=== PATIENT | male | born 1960 | race Caucasian/White ===

== ENCOUNTER 2018-07-18 02:08 | Inpatient (IN) | payer MEDICAID ==
[~2018-07-18] VITALS: Ht 185.4 cm; Wt 126.5 kg
[2018-07-18 02:00] VITALS: BP 105/61
[~2018-07-18 02:08] MED LIST: ALBU6.7H INH; COU3T PO; COU4T PO; LOSA25TA96 PO; OMEP40CA37 PO; SUMA25TA35 PO
[2018-07-18] MEDS ORDERED: normal saline 1000ML IV soln IV ONE (02:15)
[2018-07-18 02:44] LABS: BASOPHILS # (AUTO) 0.1 X10'3 (0-0.2); BASOPHILS % (AUTO) 0.6 % (0-1); EOSINOPHILS # (AUTO) 0.3 X10'3 (0-0.9); EOSINOPHILS % (AUTO) 2.1 % (0-6); HEMATOCRIT 25.9 % (42.0-52.0); HEMOGLOBIN 8.6 g/dl (14.0-17.9); LYMPHOCYTES % (AUTO) 25.1 % (21-51); MEAN CORPUSCULAR HEMOGLOBIN 29.5 PG (27.0-31.0); MEAN CORPUSCULAR HGB CONC 33.4 % (33.0-36.5); MEAN CORPUSCULAR VOLUME 88.4 FL (78-98); MEAN PLATELET VOLUME 8.3 FL (7.4-10.4); MONOCYTES # (AUTO) 0.5 X10'3 (0-0.9); MONOCYTES % (AUTO) 4.6 % (2-12); NEUTROPHILS # (AUTO) 8.1 X10'3 (1.8-7.7); NEUTROPHILS % (AUTO) 67.6 % (42-75); PLATELET COUNT 231 X10'3 (140-440); RED BLOOD COUNT 2.93 X10'6 (4.70-6.10); RED CELL DISTRIBUTION WIDTH 12.9 % (11.5-14.5); WHITE BLOOD COUNT 11.9 X10'3 (4.5-11.0)
[2018-07-18 02:52] LABS: INR 1.1 INR; PARTIAL THROMBOPLASTIN TIME 24 SECONDS (22-32); PROTHROMBIN TIME 11.8 SECONDS (9.0-12.0)
[2018-07-18 02:58] LABS: ALANINE AMINOTRANSFERASE 19 U/L (12-78); ALBUMIN 2.4 G/DL (3.4-5.0); ALKALINE PHOSPHATASE 51 IU/L (46-116); ANION GAP 11 (8-16); ASPARTATE AMINO TRANSFERASE 14 U/L (10-37); BILIRUBIN,TOTAL 0.2 MG/DL (0.1-1.0); BLOOD UREA NITROGEN 42 MG/DL (7-18); BUN/CREATININE RATIO 36.8 (5.4-32.0); CALCIUM 7.1 MG/DL (8.5-10.1); CHLORIDE 111 MMOL/L (99-107); CREATININE 1.14 MG/DL (0.60-1.10); GLUCOSE 144 MG/DL (70-104); MAGNESIUM 1.5 MG/DL (1.5-2.4); POTASSIUM 3.8 MMOL/L (3.5-5.1); SODIUM 144 MMOL/L (135-145); TOTAL CARBON DIOXIDE 21.6 MMOL/L (24-32); TOTAL PROTEIN 4.8 G/DL (6.4-8.2); eGFR 66 ML/MIN
[2018-07-18 03:21] LABS: OCCULT BLOOD STOOL NEGATIVE (Neg)
[2018-07-18] MEDS ORDERED: ACET-2119 PO (03:40)
[2018-07-18] MEDS ORDERED: FAMO-128 PO (03:42)
[2018-07-18] MEDS ORDERED: SIME125C PO (03:42)
[2018-07-18] MEDS ORDERED: BECL7.3A INH (03:45)
[2018-07-18] MEDS ORDERED: ALBU18HF2 INH (03:45)
[2018-07-18 03:48] LABS: CLARITY,URINE CLEAR (Clear); COLOR,URINE YELLOW (Yellow); GLUCOSE, URINE NEGATIVE (Neg); KETONES,URINE NEGATIVE (Neg); LEUKOCYTE ESTERASE ,URINE NEGATIVE (Neg); NITRITES, URINE NEGATIVE (Neg); OCCULT BLOOD,URINE NEGATIVE (Neg); PH,URINE 5.5 (4.8-8.0); PROTEIN,URINE NEGATIVE (Neg); UROBILINOGEN,URINE 0.2 E.U/dL (0.2-1.0)
[2018-07-18 03:56] LABS: UA COLLECTION TYPE STRAIGHT CATH
[2018-07-18] MEDS ORDERED: normal saline 1000ML IV soln IVB ONE (04:05)
[2018-07-18] MEDS ORDERED: APIX5TAB3 PO (04:09)
[2018-07-18] MEDS ORDERED: magnesium Cl slow-release 64mg tablet PO PRN (04:40)
[2018-07-18] MEDS ORDERED: mag hydrox/Alum hydrox/simeth 30ml oral suspension PO PRN (04:40)
[2018-07-18] MEDS ORDERED: potassium Cl 20 mEq SR tablet PO PRN ×2 (04:40)
[2018-07-18] MEDS ORDERED: magnesium 1gm/100ml D5W IVPB 100 ML IV PRN (04:40)
[2018-07-18] MEDS ORDERED: potassium Cl 40MEQ/NS 500ml 500 ML IV PRN ×2 (04:40)
[2018-07-18] MEDS ORDERED: magnesium hydroxide 30ml (MOM) UD suspension PO PRN (04:40)
[2018-07-18] MEDS ORDERED: bisacodyl 10mg suppository rectal RC PRN (04:40)
[2018-07-18] MEDS ORDERED: magnesium 4gm in 100ml NS 100 ML IV PRN (04:40)
[2018-07-18] MEDS ORDERED: ondansetron/PF 4mg/2ml inj IV PRN (04:40)
[2018-07-18] MEDS ORDERED: acetaminophen 325mg tablet PO PRN (04:40)
[2018-07-18 05:00] VITALS: BP 129/63
[2018-07-18] MEDS ORDERED: lactulose 20gm/30ml cup PO PRN (05:05)
[2018-07-18 05:15] LABS: URINE AMPHETAMINE SCREEN POSITIVE (Neg); URINE BARBITUATE SCREEN NEGATIVE (Neg); URINE BENZODIAZEPINES SCREEN NEGATIVE (Neg); URINE CANNABINOID SCREEN NEGATIVE (Neg); URINE COCAINE SCREEN NEGATIVE (Neg); URINE METHADONE SCREEN NEGATIVE (Neg); URINE OPIATE SCREEN NEGATIVE (Neg); URINE PHENCYCLIDINE SCREEN NEGATIVE (Neg)
[2018-07-18] MEDS: docusate sod 100mg capsule PO SCH ×2 (07:23→20:00)
[2018-07-18] MEDS: apixaban 2.5mg tablet PO SCH ×2 (07:23→20:22)
[2018-07-18] MEDS: normal saline 1000ml 1,000 ML IV SCH ×2 (07:30→14:40)
[2018-07-18] MEDS ORDERED: apixaban 5mg tablet PO SCH (08:00)
[2018-07-18] MEDS: K and/or MAG REPLACEMENT MC SCH (08:00)
[2018-07-18] MEDS ORDERED: non-formulary drug (Beclomethasone Dipropionate (Qvar 40 MCG INHALER) 2 PUFFS) INH SCH (08:00)
[2018-07-18] MEDS: BUDESONIDE 0.25 MG/2 ML AMPUL.NEB IH SCH ×2 (09:00→21:00)
[2018-07-18 10:00] VITALS: BP 92/60
[2018-07-18] MEDS ORDERED: adenosine 3mg/ml 2ml vial IV ONE (12:00)
[2018-07-18 18:00] VITALS: BP 92/60
[2018-07-18 22:00] VITALS: BP 103/69
[2018-07-19] VITALS (37 sets, daily range): BP systolic 84–155; BP diastolic 45–90
[2018-07-19] MEDS ORDERED: LORazepam 2 mg/ml vial IV PRN (01:35)
[2018-07-19 01:36] LABS: ABG BASE EXCESS -4.9 mmol/L (-2.0-3.0); ABG HCO3 18.2 mmol/L (22.0-26.0); ABG OXYGEN SATURATION 97.5 % (95-98); ABG PCO2 (T) 24.4 mmHg (35.0-48.0); ABG PH (T) 7.489 (7.350-7.450); ABG PO2 (T) 107.9 mmHg (83-108); ALLEN'S TEST Positive; FCOHb 0.3 % (0.5-1.5); FMetHb 0.2 % (0.3-1.12); PATIENT TEMPERATURE 36.4; TOTAL HEMOGLOBIN 5.6 G/dl (14.0-18.0)
[2018-07-19 02:00] LABS: BASOPHILS # (AUTO) 0.1 X10'3 (0-0.2); BASOPHILS % (AUTO) 0.5 % (0-1); EOSINOPHILS # (AUTO) 0.5 X10'3 (0-0.9); EOSINOPHILS % (AUTO) 4.4 % (0-6); LYMPHOCYTES # (AUTO) 3.8 X10'3 (1.1-4.8); LYMPHOCYTES % (AUTO) 30.5 % (21-51); MEAN CORPUSCULAR HEMOGLOBIN 29.9 PG (27.0-31.0); MEAN CORPUSCULAR HGB CONC 33.3 % (33.0-36.5); MEAN CORPUSCULAR VOLUME 89.8 FL (78-98); MEAN PLATELET VOLUME 8.4 FL (7.4-10.4); MONOCYTES # (AUTO) 0.8 X10'3 (0-0.9); MONOCYTES % (AUTO) 6.8 % (2-12); NEUTROPHILS # (AUTO) 7.1 X10'3 (1.8-7.7); NEUTROPHILS % (AUTO) 57.8 % (42-75); PLATELET COUNT 208 X10'3 (140-440); RED BLOOD COUNT 1.89 X10'6 (4.70-6.10); RED CELL DISTRIBUTION WIDTH 13.2 % (11.5-14.5); WHITE BLOOD COUNT 12.3 X10'3 (4.5-11.0)
[2018-07-19 02:02] LABS: ALBUMIN 2.1 G/DL (3.4-5.0); ANION GAP 10 (8-16); BLOOD UREA NITROGEN 27 MG/DL (7-18); BUN/CREATININE RATIO 24.1 (5.4-32.0); CALCIUM 7.1 MG/DL (8.5-10.1); CHLORIDE 110 MMOL/L (99-107); CREATININE 1.12 MG/DL (0.60-1.10); GLUCOSE 157 MG/DL (70-104); PHOSPHORUS 2.4 MG/DL (2.3-4.5); POTASSIUM 3.7 MMOL/L (3.5-5.1); SODIUM 141 MMOL/L (135-145); TOTAL CARBON DIOXIDE 21.2 MMOL/L (24-32); TROPONIN I < 0.04 NG/ML (0.0-0.05); eGFR 68 ML/MIN
[2018-07-19 02:07] LABS: HEMOGLOBIN 5.7 g/dl (14.0-17.9)
[2018-07-19] MEDS ORDERED: normal saline 1000ml 1,000 ML IV ONE ×3 (02:45)
[2018-07-19] MEDS ORDERED: pantoprazole 40 MG vial IV ONE (02:55)
[2018-07-19] MEDS ORDERED: octreotide 100mcg/1 ml ampule SQ SCH (03:02)
[2018-07-19] MEDS: normal saline 1000ml 1,000 ML IV SCH ×3 (03:35→20:40)
[2018-07-19] MEDS: pantoprazole 40MG/NS 100ML BAG 100 ML IV SCH ×5 (03:37→20:16)
[2018-07-19] MEDS: octreotide inj. 1,250 MCG in normal saline 250ml IV soln 243.75 ML IV SCH ×2 (05:00→05:34)
[2018-07-19 05:51] LABS: MAGNESIUM 1.8 MG/DL (1.5-2.4)
[2018-07-19] MEDS ORDERED: ERYTHROMYCIN LACTOBIONATE IV ONE ×3 (06:00→09:00)
[2018-07-19] MEDS ORDERED: NORMAL SALINE IV ONE ×3 (06:00→09:00)
[2018-07-19] MEDS: docusate sod 100mg capsule PO SCH ×2 (08:00→19:55)
[2018-07-19] MEDS: K and/or MAG REPLACEMENT MC SCH (08:00)
[2018-07-19] MEDS ORDERED: MIDAZolam 5mg/5ml vial ONE (08:16)
[2018-07-19] MEDS ORDERED: LIDOcaine Viscous 15ml cup ONE (08:16)
[2018-07-19] MEDS ORDERED: fentaNYL/PF 50MCG/1 ML 2ML syringe ONE (08:16)
[2018-07-19] MEDS: BUDESONIDE 0.25 MG/2 ML AMPUL.NEB IH SCH ×2 (09:00→20:56)
[2018-07-19 12:04] LABS: HEMATOCRIT 24.9 % (42.0-52.0); HEMOGLOBIN 8.4 g/dl (14.0-17.9); MEAN CORPUSCULAR HEMOGLOBIN 29.3 PG (27.0-31.0); MEAN CORPUSCULAR HGB CONC 33.6 % (33.0-36.5); MEAN PLATELET VOLUME 8.8 FL (7.4-10.4); PLATELET COUNT 147 X10'3 (140-440); RED BLOOD COUNT 2.86 X10'6 (4.70-6.10); RED CELL DISTRIBUTION WIDTH 14.2 % (11.5-14.5); WHITE BLOOD COUNT 15.6 X10'3 (4.5-11.0)
[2018-07-19 12:29] LABS: ALBUMIN 2.3 G/DL (3.4-5.0); ANION GAP 10 (8-16); BLOOD UREA NITROGEN 30 MG/DL (7-18); BUN/CREATININE RATIO 28.8 (5.4-32.0); CHLORIDE 111 MMOL/L (99-107); CREATININE 1.04 MG/DL (0.60-1.10); GLUCOSE 138 MG/DL (70-104); MAGNESIUM 1.7 MG/DL (1.5-2.4); POTASSIUM 4.5 MMOL/L (3.5-5.1); SODIUM 143 MMOL/L (135-145); TOTAL CARBON DIOXIDE 22.4 MMOL/L (24-32); eGFR 74 ML/MIN
[2018-07-19 15:54] LABS: BASOPHILS % (AUTO) 0.1 % (0-1); EOSINOPHILS # (AUTO) 0.1 X10'3 (0-0.9); EOSINOPHILS % (AUTO) 0.4 % (0-6); HEMATOCRIT 22.7 % (42.0-52.0); HEMOGLOBIN 7.7 g/dl (14.0-17.9); LYMPHOCYTES # (AUTO) 2.6 X10'3 (1.1-4.8); LYMPHOCYTES % (AUTO) 15.7 % (21-51); MEAN CORPUSCULAR HEMOGLOBIN 29.4 PG (27.0-31.0); MEAN CORPUSCULAR HGB CONC 33.9 % (33.0-36.5); MEAN CORPUSCULAR VOLUME 86.6 FL (78-98); MEAN PLATELET VOLUME 8.5 FL (7.4-10.4); MONOCYTES % (AUTO) 6.3 % (2-12); NEUTROPHILS # (AUTO) 12.9 X10'3 (1.8-7.7); NEUTROPHILS % (AUTO) 77.5 % (42-75); PLATELET COUNT 161 X10'3 (140-440); RED BLOOD COUNT 2.62 X10'6 (4.70-6.10); RED CELL DISTRIBUTION WIDTH 14.7 % (11.5-14.5); WHITE BLOOD COUNT 16.6 X10'3 (4.5-11.0)
[2018-07-19] MEDS ORDERED: diphenhydrAMINE 25 MG/10 ML UD oral solution PO ONE (19:50)
[2018-07-19] MEDS ORDERED: OXAZEpam 15mg capsule PO PRN (19:55)
[2018-07-19] MEDS ORDERED: diphenhydrAMINE 25mg capsule PO ONE (19:55)
[2018-07-19 20:36] LABS: HEMOGLOBIN 7.2 g/dl (14.0-17.9); MEAN CORPUSCULAR HEMOGLOBIN 29.8 PG (27.0-31.0); MEAN CORPUSCULAR HGB CONC 34.5 % (33.0-36.5); MEAN CORPUSCULAR VOLUME 86.3 FL (78-98); MEAN PLATELET VOLUME 8.8 FL (7.4-10.4); PLATELET COUNT 163 X10'3 (140-440); RED BLOOD COUNT 2.42 X10'6 (4.70-6.10); RED CELL DISTRIBUTION WIDTH 14.9 % (11.5-14.5); WHITE BLOOD COUNT 17.1 X10'3 (4.5-11.0)
[2018-07-19 20:40] LABS: HEMATOCRIT 20.9 % (42.0-52.0)
[2018-07-20] VITALS (27 sets, daily range): BP systolic 94–143; BP diastolic 59–94
[2018-07-20] MEDS: pantoprazole 40MG/NS 100ML BAG 100 ML IV SCH ×5 (01:00→19:12)
[2018-07-20 05:42] LABS: BASOPHILS # (AUTO) 0.1 X10'3 (0-0.2); BASOPHILS % (AUTO) 0.4 % (0-1); EOSINOPHILS # (AUTO) 0.6 X10'3 (0-0.9); EOSINOPHILS % (AUTO) 4.2 % (0-6); HEMOGLOBIN 7.3 g/dl (14.0-17.9); MEAN CORPUSCULAR HGB CONC 34.6 % (33.0-36.5); MEAN CORPUSCULAR VOLUME 86.7 FL (78-98); MEAN PLATELET VOLUME 8.8 FL (7.4-10.4); MONOCYTES # (AUTO) 0.9 X10'3 (0-0.9); MONOCYTES % (AUTO) 6.7 % (2-12); NEUTROPHILS # (AUTO) 8.2 X10'3 (1.8-7.7); NEUTROPHILS % (AUTO) 59.7 % (42-75); PLATELET COUNT 165 X10'3 (140-440); RED BLOOD COUNT 2.43 X10'6 (4.70-6.10); RED CELL DISTRIBUTION WIDTH 14.7 % (11.5-14.5); WHITE BLOOD COUNT 13.8 X10'3 (4.5-11.0)
[2018-07-20 06:13] LABS: ALBUMIN 2.1 G/DL (3.4-5.0); ANION GAP 6 (8-16); BLOOD UREA NITROGEN 24 MG/DL (7-18); BUN/CREATININE RATIO 22.9 (5.4-32.0); CHLORIDE 109 MMOL/L (99-107); CREATININE 1.05 MG/DL (0.60-1.10); GLUCOSE 114 MG/DL (70-104); MAGNESIUM 1.7 MG/DL (1.5-2.4); SODIUM 140 MMOL/L (135-145); TOTAL CARBON DIOXIDE 24.6 MMOL/L (24-32); eGFR 73 ML/MIN
[2018-07-20] MEDS: normal saline 1000ml 1,000 ML IV SCH ×2 (06:40→16:40)
[2018-07-20] MEDS: docusate sod 100mg capsule PO SCH ×2 (08:00→20:00)
[2018-07-20] MEDS: K and/or MAG REPLACEMENT MC SCH (08:00)
[2018-07-20] MEDS: BUDESONIDE 0.25 MG/2 ML AMPUL.NEB IH SCH ×2 (08:22→19:46)
[2018-07-20 14:54] LABS: HEMATOCRIT 22.8 % (42.0-52.0); HEMOGLOBIN 7.8 g/dl (14.0-17.9); MEAN CORPUSCULAR HEMOGLOBIN 29.6 PG (27.0-31.0); MEAN CORPUSCULAR HGB CONC 34.1 % (33.0-36.5); MEAN CORPUSCULAR VOLUME 86.8 FL (78-98); MEAN PLATELET VOLUME 8.6 FL (7.4-10.4); PLATELET COUNT 149 X10'3 (140-440); RED BLOOD COUNT 2.62 X10'6 (4.70-6.10); RED CELL DISTRIBUTION WIDTH 14.7 % (11.5-14.5); WHITE BLOOD COUNT 11.5 X10'3 (4.5-11.0)
[2018-07-20] MEDS: acetaminophen 325mg tablet PO PRN (21:41)
[2018-07-21] VITALS (25 sets, daily range): BP systolic 87–134; BP diastolic 52–85
[2018-07-21] MEDS: pantoprazole 40MG/NS 100ML BAG 100 ML IV SCH ×5 (00:03→20:46)
[2018-07-21] MEDS: normal saline 1000ml 1,000 ML IV SCH ×2 (03:19→12:18)
[2018-07-21 05:01] LABS: BASOPHILS # (AUTO) 0.1 X10'3 (0-0.2); BASOPHILS % (AUTO) 0.6 % (0-1); EOSINOPHILS # (AUTO) 0.6 X10'3 (0-0.9); EOSINOPHILS % (AUTO) 6.2 % (0-6); HEMOGLOBIN 7.3 g/dl (14.0-17.9); LYMPHOCYTES # (AUTO) 2.4 X10'3 (1.1-4.8); LYMPHOCYTES % (AUTO) 23.8 % (21-51); MEAN CORPUSCULAR HEMOGLOBIN 29.8 PG (27.0-31.0); MEAN CORPUSCULAR HGB CONC 34.1 % (33.0-36.5); MEAN CORPUSCULAR VOLUME 87.4 FL (78-98); MONOCYTES # (AUTO) 0.9 X10'3 (0-0.9); MONOCYTES % (AUTO) 8.6 % (2-12); NEUTROPHILS # (AUTO) 5.9 X10'3 (1.8-7.7); NEUTROPHILS % (AUTO) 60.8 % (42-75); PLATELET COUNT 156 X10'3 (140-440); RED BLOOD COUNT 2.43 X10'6 (4.70-6.10); WHITE BLOOD COUNT 9.9 X10'3 (4.5-11.0)
[2018-07-21 05:04] LABS: HEMATOCRIT 21.2 % (42.0-52.0)
[2018-07-21 05:06] LABS: ANION GAP 6 (8-16); BLOOD UREA NITROGEN 14 MG/DL (7-18); BUN/CREATININE RATIO 14.7 (5.4-32.0); CALCIUM 7.2 MG/DL (8.5-10.1); CHLORIDE 109 MMOL/L (99-107); CREATININE 0.95 MG/DL (0.60-1.10); GLUCOSE 112 MG/DL (70-104); MAGNESIUM 1.8 MG/DL (1.5-2.4); POTASSIUM 3.4 MMOL/L (3.5-5.1); SODIUM 142 MMOL/L (135-145); TOTAL CARBON DIOXIDE 27.3 MMOL/L (24-32); eGFR 82 ML/MIN
[2018-07-21] MEDS ORDERED: potassium Cl 20 mEq SR tablet PO PRN (06:50)
[2018-07-21] MEDS ORDERED: potassium Cl 40MEQ/NS 500ml 500 ML IV PRN ×2 (06:50)
[2018-07-21] MEDS: potassium Cl 20 mEq SR tablet PO PRN ×3 (07:57→19:41)
[2018-07-21] MEDS: docusate sod 100mg capsule PO SCH ×2 (07:57→19:41)
[2018-07-21] MEDS: K and/or MAG REPLACEMENT MC SCH (08:00)
[2018-07-21] MEDS: acetaminophen 325mg tablet PO PRN (10:01)
[2018-07-21] MEDS ORDERED: furosemide 40mg/4ml inj IV ONE (13:10)
[2018-07-21] MEDS: BUDESONIDE 0.25 MG/2 ML AMPUL.NEB IH SCH ×2 (14:37→19:41)
[2018-07-21 16:18] LABS: HEMATOCRIT 26.4 % (42.0-52.0); HEMOGLOBIN 8.9 g/dl (14.0-17.9); MEAN CORPUSCULAR HEMOGLOBIN 29.7 PG (27.0-31.0); MEAN CORPUSCULAR VOLUME 87.4 FL (78-98); PLATELET COUNT 190 X10'3 (140-440); RED BLOOD COUNT 3.01 X10'6 (4.70-6.10); RED CELL DISTRIBUTION WIDTH 15.1 % (11.5-14.5); WHITE BLOOD COUNT 9.3 X10'3 (4.5-11.0)
[2018-07-21 16:46] LABS: % IRON SATURATION 4 % (11-46); IRON 12 UG/DL (53-167); TOTAL IRON BINDING CAPACITY 332 UG/DL (259-388)
[2018-07-21 17:06] LABS: FERRITIN 17 NG/ML (26-388)
[2018-07-22] VITALS (18 sets, daily range): BP systolic 86–146; BP diastolic 61–93
[2018-07-22] MEDS: pantoprazole 40MG/NS 100ML BAG 100 ML IV SCH ×2 (01:36→06:07)
[2018-07-22 05:23] LABS: BASOPHILS # (AUTO) 0.1 X10'3 (0-0.2); BASOPHILS % (AUTO) 0.6 % (0-1); EOSINOPHILS # (AUTO) 0.6 X10'3 (0-0.9); EOSINOPHILS % (AUTO) 6.5 % (0-6); HEMATOCRIT 25.3 % (42.0-52.0); HEMOGLOBIN 8.6 g/dl (14.0-17.9); LYMPHOCYTES # (AUTO) 2.1 X10'3 (1.1-4.8); LYMPHOCYTES % (AUTO) 24.4 % (21-51); MEAN CORPUSCULAR HEMOGLOBIN 30.3 PG (27.0-31.0); MEAN CORPUSCULAR HGB CONC 34.2 % (33.0-36.5); MEAN CORPUSCULAR VOLUME 88.6 FL (78-98); MEAN PLATELET VOLUME 8.4 FL (7.4-10.4); MONOCYTES # (AUTO) 0.7 X10'3 (0-0.9); NEUTROPHILS # (AUTO) 5.1 X10'3 (1.8-7.7); NEUTROPHILS % (AUTO) 60.5 % (42-75); PLATELET COUNT 190 X10'3 (140-440); RED BLOOD COUNT 2.85 X10'6 (4.70-6.10); RED CELL DISTRIBUTION WIDTH 14.9 % (11.5-14.5); WHITE BLOOD COUNT 8.6 X10'3 (4.5-11.0)
[2018-07-22 05:27] LABS: ALBUMIN 2.3 G/DL (3.4-5.0); ANION GAP 7 (8-16); BLOOD UREA NITROGEN 12 MG/DL (7-18); BUN/CREATININE RATIO 13.6 (5.4-32.0); CALCIUM 7.6 MG/DL (8.5-10.1); CHLORIDE 107 MMOL/L (99-107); CREATININE 0.88 MG/DL (0.60-1.10); GLUCOSE 107 MG/DL (70-104); MAGNESIUM 1.9 MG/DL (1.5-2.4); POTASSIUM 3.6 MMOL/L (3.5-5.1); SODIUM 142 MMOL/L (135-145); TOTAL CARBON DIOXIDE 28.1 MMOL/L (24-32); eGFR 89 ML/MIN
[2018-07-22] MEDS: docusate sod 100mg capsule PO SCH ×2 (07:58→19:44)
[2018-07-22] MEDS: acetaminophen 325mg tablet PO PRN ×2 (07:59→22:58)
[2018-07-22] MEDS: K and/or MAG REPLACEMENT MC SCH (08:00)
[2018-07-22] MEDS: BUDESONIDE 0.25 MG/2 ML AMPUL.NEB IH SCH ×2 (09:01→20:35)
[2018-07-22] MEDS ORDERED: furosemide 40mg/4ml inj IV ONE (12:45)
[2018-07-22] MEDS: pantoprazole 40 MG vial IV SCH ×2 (12:49→19:44)
[2018-07-23 03:00] VITALS: BP 97/57
[2018-07-23 06:00] VITALS: BP 111/68
[2018-07-23 06:17] LABS: BASOPHILS % (AUTO) 0.5 % (0-1); EOSINOPHILS # (AUTO) 0.4 X10'3 (0-0.9); EOSINOPHILS % (AUTO) 5.6 % (0-6); HEMATOCRIT 24.3 % (42.0-52.0); HEMOGLOBIN 8.4 g/dl (14.0-17.9); LYMPHOCYTES % (AUTO) 26.5 % (21-51); MEAN CORPUSCULAR HEMOGLOBIN 30.3 PG (27.0-31.0); MEAN CORPUSCULAR HGB CONC 34.5 % (33.0-36.5); MEAN CORPUSCULAR VOLUME 87.8 FL (78-98); MEAN PLATELET VOLUME 8.3 FL (7.4-10.4); MONOCYTES # (AUTO) 0.6 X10'3 (0-0.9); MONOCYTES % (AUTO) 8.6 % (2-12); NEUTROPHILS # (AUTO) 4.5 X10'3 (1.8-7.7); NEUTROPHILS % (AUTO) 58.8 % (42-75); PLATELET COUNT 225 X10'3 (140-440); RED BLOOD COUNT 2.77 X10'6 (4.70-6.10); RED CELL DISTRIBUTION WIDTH 15.3 % (11.5-14.5); WHITE BLOOD COUNT 7.5 X10'3 (4.5-11.0)
[2018-07-23 06:56] LABS: ALBUMIN 2.3 G/DL (3.4-5.0); ANION GAP 7 (8-16); BLOOD UREA NITROGEN 13 MG/DL (7-18); BUN/CREATININE RATIO 12.5 (5.4-32.0); CALCIUM 7.9 MG/DL (8.5-10.1); CHLORIDE 106 MMOL/L (99-107); CREATININE 1.04 MG/DL (0.60-1.10); GLUCOSE 108 MG/DL (70-104); MAGNESIUM 1.9 MG/DL (1.5-2.4); POTASSIUM 3.4 MMOL/L (3.5-5.1); SODIUM 143 MMOL/L (135-145); TOTAL CARBON DIOXIDE 29.7 MMOL/L (24-32); eGFR 74 ML/MIN
[2018-07-23] MEDS: K and/or MAG REPLACEMENT MC SCH (08:00)
[2018-07-23] MEDS: potassium Cl 20 mEq SR tablet PO PRN ×4 (08:15→21:24)
[2018-07-23] MEDS: pantoprazole 40 MG vial IV SCH ×2 (08:15→19:47)
[2018-07-23] MEDS: docusate sod 100mg capsule PO SCH ×2 (08:15→19:47)
[2018-07-23] MEDS: BUDESONIDE 0.25 MG/2 ML AMPUL.NEB IH SCH ×2 (08:52→21:00)
[2018-07-23 11:00] VITALS: BP 108/65
[2018-07-23] MEDS: acetaminophen 325mg tablet PO PRN (12:04)
[2018-07-23] MEDS: sodium ferric gluc complex inj 125 MG in normal saline 100ml IV soln 100 ML IV SCH (12:47)
[2018-07-23 15:00] VITALS: BP 97/63
[2018-07-23 19:00] VITALS: BP 114/70
[2018-07-23 23:00] VITALS: BP 127/84
[2018-07-24 03:00] VITALS: BP 125/62
[2018-07-24 05:27] LABS: BASOPHILS % (AUTO) 0.4 % (0-1); EOSINOPHILS # (AUTO) 0.4 X10'3 (0-0.9); EOSINOPHILS % (AUTO) 5.4 % (0-6); HEMATOCRIT 25.7 % (42.0-52.0); HEMOGLOBIN 8.4 g/dl (14.0-17.9); LYMPHOCYTES # (AUTO) 1.8 X10'3 (1.1-4.8); LYMPHOCYTES % (AUTO) 22.2 % (21-51); MEAN CORPUSCULAR HEMOGLOBIN 28.7 PG (27.0-31.0); MEAN CORPUSCULAR HGB CONC 32.6 % (33.0-36.5); MEAN CORPUSCULAR VOLUME 87.9 FL (78-98); MEAN PLATELET VOLUME 7.8 FL (7.4-10.4); MONOCYTES # (AUTO) 0.8 X10'3 (0-0.9); MONOCYTES % (AUTO) 9.5 % (2-12); NEUTROPHILS # (AUTO) 5.1 X10'3 (1.8-7.7); NEUTROPHILS % (AUTO) 62.5 % (42-75); PLATELET COUNT 258 X10'3 (140-440); RED BLOOD COUNT 2.93 X10'6 (4.70-6.10); RED CELL DISTRIBUTION WIDTH 15.9 % (11.5-14.5); WHITE BLOOD COUNT 8.1 X10'3 (4.5-11.0)
[2018-07-24 05:30] LABS: ALANINE AMINOTRANSFERASE 84 U/L (12-78); ALBUMIN 2.5 G/DL (3.4-5.0); ALBUMIN/GLOBULIN RATIO 0.9 (1.1-1.5); ALKALINE PHOSPHATASE 60 IU/L (46-116); ANION GAP 8 (8-16); ASPARTATE AMINO TRANSFERASE 37 U/L (10-37); BILIRUBIN,TOTAL 0.3 MG/DL (0.1-1.0); BLOOD UREA NITROGEN 13 MG/DL (7-18); BUN/CREATININE RATIO 12.6 (5.4-32.0); CALCIUM 8.1 MG/DL (8.5-10.1); CHLORIDE 108 MMOL/L (99-107); CREATININE 1.03 MG/DL (0.60-1.10); GLUCOSE 103 MG/DL (70-104); SODIUM 143 MMOL/L (135-145); TOTAL CARBON DIOXIDE 27.4 MMOL/L (24-32); TOTAL PROTEIN 5.4 G/DL (6.4-8.2); eGFR 74 ML/MIN
[2018-07-24 06:00] VITALS: BP 100/55
[2018-07-24] MEDS: K and/or MAG REPLACEMENT MC SCH (06:58)
[2018-07-24] MEDS: pantoprazole 40 MG vial IV SCH (08:26)
[2018-07-24] MEDS: docusate sod 100mg capsule PO SCH (08:26)
[2018-07-24] MEDS: sodium ferric gluc complex inj 125 MG in normal saline 100ml IV soln 100 ML IV SCH (09:20)
[2018-07-24] MEDS: BUDESONIDE 0.25 MG/2 ML AMPUL.NEB IH SCH (10:51)
[2018-07-24 11:00] VITALS: BP 113/71
[2018-07-24] MEDS ORDERED: FERR325T39 PO (12:01)
[2018-07-24] MEDS ORDERED: PANT-47 PO (12:01)
== END 2018-07-24 13:40 | disposition home or self-care (01) | DRG 241 ==
LOC: ER 02:09 → OBSVTOIN 04:40 → ED HOLD 04:40 → ORTHO 4S 05:50 → CICU 2S 07-19 03:28 → PCU 3S 07-22 15:55
PROVIDERS: ADMIT Hospitalist; ATTEND Family Medicine
PROC: 3E02340 Introduction of Influenza Vaccine into Muscle, Percutaneous Approach (ICD-10-PCS; principal; 2018-07-18)
PROC: 0W3P8ZZ Control Bleeding in Gastrointestinal Tract, Via Natural or Artificial Opening Endoscopic (ICD-10-PCS; 2018-07-19)
PROC: 30233L1 Transfusion of Nonautologous Fresh Plasma into Peripheral Vein, Percutaneous Approach (ICD-10-PCS; 2018-07-19)
PROC: 30233N1 Transfusion of Nonautologous Red Blood Cells into Peripheral Vein, Percutaneous Approach (ICD-10-PCS; 2018-07-19)
PROC: 30233K1 Transfusion of Nonautologous Frozen Plasma into Peripheral Vein, Percutaneous Approach (ICD-10-PCS; 2018-07-19)
DX: K25.4 Chronic or unspecified gastric ulcer with hemorrhage (principal); R57.1 Hypovolemic shock; G93.41 Metabolic encephalopathy; N17.9 Acute kidney failure, unspecified; E87.2 Acidosis; R65.10 Systemic inflammatory response syndrome (SIRS) of non-infectious origin without acute organ dysfunction; F15.10 Other stimulant abuse, uncomplicated; J45.909 Unspecified asthma, uncomplicated; K21.9 Gastro-esophageal reflux disease without esophagitis; K44.9 Diaphragmatic hernia without obstruction or gangrene; D50.9 Iron deficiency anemia, unspecified; F41.9 Anxiety disorder, unspecified; I95.1 Orthostatic hypotension; K59.00 Constipation, unspecified; Z79.01 Long term (current) use of anticoagulants; Z79.51 Long term (current) use of inhaled steroids; Z86.711 Personal history of pulmonary embolism; Z86.718 Personal history of other venous thrombosis and embolism; Z87.01 Personal history of pneumonia (recurrent); Z88.0 Allergy status to penicillin; Z79.899 Other long term (current) drug therapy; Z23 Encounter for immunization
CPT/HCPCS: 36415; 36600; 70450; 71045; 74176; 80048; 80053; 80305; 81003; 82272; 82728; 82803; 82948; 83540; 83550; 83605; 83735; 83880; 84100; 84145; 84484; 85018; 85025; 85027; 85610; 85730; 86885; 86900; 86901; 86920; 87040; 87070; 93005; 93308; 93970; 94640; 94760; 96360; 96361; 97110; 97116; 97162; 97530; 99152; 99285; C9113; J0153; J1364; J1940; J2250; J2354; J2916; J3010; J7030; P9016; P9059; Q0163; Q2037

== ENCOUNTER 2022-08-06 08:40 | Day surgery (SDC) | payer MEDICAID ==
[~2022-08-06] VITALS: Ht 198.1 cm; Wt 128.6 kg
[~2022-08-06 08:40] MED LIST changes: +ACET-2119 PO; +ALBU18HF2 INH; -ALBU6.7H INH; +BECL7.3A INH; -COU3T PO; -COU4T PO; +FERR325T39 PO; -LOSA25TA96 PO; -OMEP40CA37 PO; +PANT-47 PO; +SIME125C PO
[2022-08-06 09:00] VITALS: BP 136/80
[2022-08-06] MEDS ORDERED: LOSA25TA41 PO (09:01)
[2022-08-06] MEDS ORDERED: APIX5TAB3 PO (09:02)
[2022-08-06] MEDS ORDERED: FLONASE (09:06)
[2022-08-06] MEDS ORDERED: MIDAZolam 1 MG/ML 5ML VIAL ONE (09:14)
[2022-08-06] MEDS ORDERED: fentaNYL/PF 50MCG/1 ML 2ML syringe ONE (09:14)
[2022-08-06] MEDS ORDERED: LIDOcaine Viscous 15ml cup ONE (09:15)
[2022-08-06 10:00] VITALS: BP 126/83
[2022-08-06 10:10] VITALS: BP 135/89
[2022-08-06 10:20] VITALS: BP 121/81
[2022-08-06 10:30] VITALS: BP 123/88
== END 2022-08-06 10:40 | disposition home or self-care (01) ==
LOC: GI LAB 08:40
PROVIDERS: ATTEND Internal Medicine Gastroenterology
DX: K20.90 Esophagitis, unspecified without bleeding (principal); K44.9 Diaphragmatic hernia without obstruction or gangrene; K29.70 Gastritis, unspecified, without bleeding; Z79.899 Other long term (current) drug therapy
CPT/HCPCS: 43239; J2250; J3010; J7030; Z7512; 99152; A4620

== ENCOUNTER 2022-09-22 05:19 | Emergency (ER) | payer MEDICAID ==
[~2022-09-22] VITALS: Ht 198.1 cm; Wt 127.0 kg
[~2022-09-22 05:19] MED LIST changes: +APIX5TAB3 PO; -FERR325T39 PO; +FLONASE; +LOSA25TA41 PO; -SUMA25TA35 PO
== END 2022-09-22 10:21 | disposition left against medical advice (07) ==
LOC: ER 05:20
DX: R10.9 Unspecified abdominal pain (principal); Z53.21 Procedure and treatment not carried out due to patient leaving prior to being seen by health care provider

== ENCOUNTER 2022-10-07 10:55 | Day surgery (SDC) | payer MEDICAID ==
[~2022-10-07] VITALS: Ht 198.1 cm; Wt 128.0 kg
[2022-10-07] MEDS ORDERED: MIDAZolam 1 MG/ML 5ML VIAL ONE (11:08)
[2022-10-07] MEDS ORDERED: FENTANYL CITRATE/PF 50 MCG/1 ML VIAL ONE (11:08)
[2022-10-07 11:10] VITALS: BP 128/79
[2022-10-07 12:03] VITALS: BP 157/92
[2022-10-07 12:13] VITALS: BP 121/76
[2022-10-07 12:23] VITALS: BP 133/84
[2022-10-07 12:33] VITALS: BP 142/84
== END 2022-10-07 12:35 | disposition home or self-care (01) ==
LOC: GI LAB 10:55
PROVIDERS: ATTEND Internal Medicine Gastroenterology
DX: R19.5 Other fecal abnormalities (principal); K57.30 Diverticulosis of large intestine without perforation or abscess without bleeding; K64.8 Other hemorrhoids
CPT/HCPCS: 45378; 99152; J2250; J3010; J7030; Z7512; A4620

== ENCOUNTER 2024-12-05 08:50 | Outpatient (CLI) | payer MEDICAID | END 2024-12-05 23:59 | disposition home or self-care (01) | LOC: RAD 08:50 | PROVIDERS: ATTEND Podiatrist Foot & Ankle Surgery | DX: S93.325A Dislocation of tarsometatarsal joint of left foot, initial encounter (principal); M19.072 Primary osteoarthritis, left ankle and foot; M14.672 Charcot's joint, left ankle and foot; M25.472 Effusion, left ankle; M21.42 Flat foot [pes planus] (acquired), left foot; M25.375 Other instability, left foot; M20.5X2 Other deformities of toe(s) (acquired), left foot; M25.372 Other instability, left ankle; M21.6X2 Other acquired deformities of left foot; L30.9 Dermatitis, unspecified; T81.31XA Disruption of external operation (surgical) wound, not elsewhere classified, initial encounter; M25.572 Pain in left ankle and joints of left foot; X58.XXXA Exposure to other specified factors, initial encounter; Y93.89 Activity, other specified; Y92.89 Other specified places as the place of occurrence of the external cause; Y99.8 Other external cause status | CPT/HCPCS: 73700 ==